=== PATIENT | male | born 1990 | race Caucasian/White ===

== ENCOUNTER 2017-06-07 22:50 | Emergency (ER) | payer OTHER ==
[~2017-06-07] VITALS: Ht 180.3 cm; Wt 103.8 kg
[2017-06-07 23:03] VITALS: TEMP 36.9; Ht 180.3 cm; Wt 103.8 kg
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
[2017-06-08] MEDS ORDERED: OPTIRAY 320 IV PRN
[2017-06-08 00:17] LABS: HEMATOCRIT 45.4 % (42-52); MEAN CELL VOLUME 86.6 fL (80-100); MEAN CORPUSCULAR HEMOGLOBIN 28.6 pg (25-34); MEAN PLATELET VOLUME 11.4 fL (7.4-10.4); PLATELET COUNT 219 K/uL (130-400); RED BLOOD COUNT 5.24 M/uL (4.7-6.1); WHITE BLOOD COUNT 17.29 K/uL (4.8-10.8)
[2017-06-08 00:44] LABS: BUN/CREATININE RATIO 14.1 (10-20); CREATININE 1.45 mg/dl (0.60-1.40)
[2017-06-08 01:12] LABS: URINE APPEARANCE CLEAR (CLEAR); URINE BILIRUBIN NEG (NEG); URINE COLOR YELLOW; URINE EPITHELIAL CELL AUTO 20-30 /lpf (0-5); URINE NITRITE NEG (NEG); URINE PH 5.5 (4.5-7.5); URINE SPECIFIC GRAVITY 1.031 (1.000-1.030); UROBILINOGEN NEG (NEG)
[2017-06-08 01:19] LABS: MANUAL MICROSCOPIC REQUIRED? NO; REVIEW REQ? NO
[2017-06-08] MEDS ORDERED: NURSING VERBAL MED ORDER ONE (01:30)
[2017-06-08] MEDS ORDERED: SODIUM CHLORIDE 0.9% 1000ML 1,000 ML IV STA (02:29)
[2017-06-08 03:18] VITALS: BP 157/74; PULSE 88; O2SAT 97
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
== END 2017-06-08 03:40 | disposition home or self-care (01) ==
LOC: EDBD 22:50 → C.EDB 22:52 → C.EDA 06-08 03:40
DX: S22.42XA Multiple fractures of ribs, left side, initial encounter for closed fracture (principal); S37.012A Minor contusion of left kidney, initial encounter; V49.50XA Passenger injured in collision with unspecified motor vehicles in traffic accident, initial encounter; Z83.3 Family history of diabetes mellitus; Z82.49 Family history of ischemic heart disease and other diseases of the circulatory system; Z84.1 Family history of disorders of kidney and ureter